=== PATIENT | female | born 1940 | race Two or more races ===

== ENCOUNTER 2021-08-13 17:10 | Inpatient (IN) | payer MEDICARE, MEDICAID ==
[~2021-08-13] VITALS: Ht 160 cm; Wt 63.2 kg
[~2021-08-13 17:10] MED LIST: ALEN70TA74 PO; AMLO-489 PO; BENA10TA15 PO; CALCTAB25 PO; GLIP5TAB12 PO; HYDR-4833 PO; METF-370 PO
[2021-08-13] MEDS ORDERED: MORPHINE SULFATE 4 MG/ML SYR/VIAL IV ONE (17:45)
[2021-08-13] MEDS ORDERED: ONDANSETRON HCL 4 MG/2 ML VIAL IV ONE (17:45)
[2021-08-13 18:27] LABS: Hematocrit 32.5 % (36.0-46.0); Hemoglobin 11.5 g/dL (12.2-16.2); Mean Corpuscular Hemoglobin 33.9 pg (28.0-32.0); Mean Corpuscular Hgb Conc. 35.3 g/dL (32.0-36.0); Mean Corpuscular Volume 96.1 fL (80.0-100.0); Red Blood Cells 3.38 10^6/uL (4.0-5.20)
[2021-08-13 18:31] LABS: Basophils % (manual) 0 (0.0-2.0); Blast Cells 0; Eosinophils % (manual) 0 (0-7); Promyelocytes % 0
[2021-08-13 18:34] LABS: Albumin 2.9 g/dL (3.4-5.0); BUN/Creatinine Ratio 10.9; Calcium 8.9 mg/dL (8.5-10.1); Potassium 4.3 mmol/L (3.5-5.1)
[2021-08-13 18:37] LABS: Bilirubin, Total 0.2 mg/dL (0.2-1.0); Total Protein 6.3 g/dL (6.4-8.2)
[2021-08-13 19:35] LABS: Band Neutrophils % (manual) 2; Lymphocytes % (manual) 27 (10.0-50.0); Metamyelocytes % 1; Monocytes % (manual) 8 (0-12); Myelocytes % 2; Reactive Lymphocytes 1
[2021-08-13] MEDS ORDERED: SODIUM CHLORIDE 0.9% 500 ML IV ONE (20:45)
[2021-08-13] MEDS: ASCORBIC ACID 500 MG TAB PO SCH (22:00)
[2021-08-13] MEDS ORDERED: MORPHINE SULFATE INJECTION 2 MG/ML SYRG IV PRN (22:00)
[2021-08-13] MEDS ORDERED: DEXTROSE (50%) 50ML SYRG IV PRN (22:00)
[2021-08-13] MEDS ORDERED: ONDANSETRON HCL 4 MG/2 ML VIAL IV PRN (22:00)
[2021-08-13] MEDS ORDERED: ACETAMINOPHEN 325 MG TAB PO PRN (22:00)
[2021-08-13] MEDS ORDERED: DOCUSATE SOD 100 MG CAP PO PRN (22:00)
[2021-08-13] MEDS ORDERED: NITROGLYCERIN 0.4 MG SL TAB SL PRN (22:00)
[2021-08-13 23:15] LABS: Urine Bacteria MANY /hpf (None Seen); Urine Blood Negative /uL (Negative); Urine Specific Gravity 1.004 (1.001-1.035); Urine WBC 7 /hpf (0 - 5)
[2021-08-14] MEDS: ACCU-CHEK COMFORT CURVE STRIP VI SCH ×7 (00:09→23:32)
[2021-08-14] MEDS: InsuLIN REG 1unit/0.01ml Soln (100units/ml) SC SCH ×7 (00:14→23:36)
[2021-08-14 02:12] VITALS: BP 141/61
[2021-08-14 04:59] VITALS: BP 117/58
[2021-08-14 06:21] LABS: Basophils # (auto) 0.1 10 ^3/uL (0-0.2); Basophils % (auto) 0.7 % (0.0-2.0); Eosinophils # (auto) 0.1 10 ^3/uL (0-0.8); Eosinophils % (auto) 1.1 % (0.0-7.0); Hematocrit 33.7 % (36.0-46.0); Hemoglobin 11.7 g/dL (12.2-16.2); Lymphocytes # (auto) 2.4 10 ^3/uL (0.4-5.4); Lymphocytes % (auto) 29.3 % (10.0-50.0); Mean Corpuscular Hgb Conc. 34.6 g/dL (32.0-36.0); Mean Corpuscular Volume 95.3 fL (80.0-100.0); Monocytes # (auto) 0.7 10 ^3/uL (0-1.3); Monocytes % (auto) 9.2 % (0.0-12.0); Neutrophils # (auto) 4.8 10 ^3/uL (1.6-8.6); Neutrophils % (auto) 59.7 % (37.0-80.0); Nucleated Red Blood Cells % 0.1 %; Red Blood Cells 3.54 10^6/uL (4.0-5.20); White Blood Cell 8.1 10^3/uL (4.4-10.8)
[2021-08-14 06:30] LABS: Calcium 8.8 mg/dL (8.5-10.1); Potassium 3.7 mmol/L (3.5-5.1)
[2021-08-14] MEDS: METOCLOPRAMIDE HCL 10 MG TAB PO SCH ×3 (06:32→17:03)
[2021-08-14 06:33] LABS: BUN/Creatinine Ratio 10.2; Bilirubin, Total 0.2 mg/dL (0.2-1.0); Total Protein 6.9 g/dL (6.4-8.2)
[2021-08-14 09:00] VITALS: BP 131/65
[2021-08-14] MEDS: ASCORBIC ACID 500 MG TAB PO SCH ×2 (09:40→21:23)
[2021-08-14] MEDS: ZINC SULFATE 220mg CAP or TAB PO SCH (09:40)
[2021-08-14] MEDS: MULTIPLE VITAMIN TAB PO SCH (09:40)
[2021-08-14] MEDS: MORPHINE SULFATE 4 MG/ML SYR/VIAL IV PRN (09:45)
[2021-08-14] MEDS: HYDROcodone-ACET 5/325MG TAB PO PRN (12:42)
[2021-08-14 13:00] VITALS: BP 156/71
[2021-08-14] MEDS ORDERED: LACTULOSE 20Gm/30ML SOLN PO PRN (16:15)
[2021-08-14 17:00] VITALS: BP 146/59
[2021-08-14 22:00] VITALS: BP 141/63
[2021-08-14] MEDS: MUPIROCIN 2% OINT 15gm or 22gm EACHNOSTRI SCH (22:00)
[2021-08-15] MEDS: InsuLIN REG 1unit/0.01ml Soln (100units/ml) SC SCH ×6 (03:33→23:13)
[2021-08-15] MEDS: ACCU-CHEK COMFORT CURVE STRIP VI SCH ×6 (03:34→23:12)
[2021-08-15 05:00] VITALS: BP 122/37
[2021-08-15] MEDS: METOCLOPRAMIDE HCL 10 MG TAB PO SCH ×3 (06:30→17:46)
[2021-08-15] MEDS: MORPHINE SULFATE 4 MG/ML SYR/VIAL IV PRN (07:58)
[2021-08-15] MEDS: MULTIPLE VITAMIN TAB PO SCH (08:35)
[2021-08-15] MEDS: ZINC SULFATE 220mg CAP or TAB PO SCH (08:35)
[2021-08-15] MEDS: ASCORBIC ACID 500 MG TAB PO SCH ×2 (08:36→21:18)
[2021-08-15 08:58] VITALS: BP 161/70
[2021-08-15] MEDS: HYDROcodone-ACET 5/325MG TAB PO PRN ×2 (09:05→18:16)
[2021-08-15] MEDS: MUPIROCIN 2% OINT 15gm or 22gm EACHNOSTRI SCH ×2 (11:50→21:18)
[2021-08-15 13:00] VITALS: BP 139/59
[2021-08-15] MEDS ORDERED: PIPERACILLIN-TAZOB 3.375GM 100 ML IV SCH (16:30)
[2021-08-15] MEDS: PIPERACILLIN-TAZOB 2.25GM 50 ML IV SCH ×2 (17:00→21:18)
[2021-08-15 17:25] VITALS: BP 109/61
[2021-08-15 22:00] VITALS: BP 135/54
[2021-08-16] MEDS: InsuLIN REG 1unit/0.01ml Soln (100units/ml) SC SCH ×5 (04:00→21:02)
[2021-08-16] MEDS: ACCU-CHEK COMFORT CURVE STRIP VI SCH ×5 (04:06→20:00)
[2021-08-16] MEDS: PIPERACILLIN-TAZOB 2.25GM 50 ML IV SCH ×4 (04:06→22:42)
[2021-08-16 05:00] VITALS: BP 149/50
[2021-08-16] MEDS: METOCLOPRAMIDE HCL 10 MG TAB PO SCH ×3 (06:23→16:08)
[2021-08-16 08:44] VITALS: BP 132/69
[2021-08-16] MEDS: MULTIPLE VITAMIN TAB PO SCH (10:19)
[2021-08-16] MEDS: ZINC SULFATE 220mg CAP or TAB PO SCH (10:20)
[2021-08-16] MEDS: ASCORBIC ACID 500 MG TAB PO SCH ×2 (10:20→21:10)
[2021-08-16] MEDS: MUPIROCIN 2% OINT 15gm or 22gm EACHNOSTRI SCH ×2 (10:20→21:11)
[2021-08-16] MEDS: MORPHINE SULFATE 4 MG/ML SYR/VIAL IV PRN (10:21)
[2021-08-16 13:24] VITALS: BP 154/64
[2021-08-16] MEDS ORDERED: LEVE250T18 PO (15:55)
[2021-08-16] MEDS ORDERED: PRIM50TA27 PO (15:55)
[2021-08-16 17:14] VITALS: BP 150/63
[2021-08-16] MEDS: PRIMIDONE 50 MG TAB PO SCH (21:10)
[2021-08-16] MEDS: levETIRAcetam 500 MG TAB PO SCH (21:18)
[2021-08-16 22:00] VITALS: BP 150/39
[2021-08-16 22:55] VITALS: BP 141/61
[2021-08-17] MEDS: ACCU-CHEK COMFORT CURVE STRIP VI SCH ×6 (00:32→21:24)
[2021-08-17] MEDS: InsuLIN REG 1unit/0.01ml Soln (100units/ml) SC SCH ×6 (00:32→21:31)
[2021-08-17] MEDS: PIPERACILLIN-TAZOB 2.25GM 50 ML IV SCH ×4 (04:54→22:58)
[2021-08-17 05:00] VITALS: BP 137/50
[2021-08-17 05:26] LABS: Basophils # (auto) 0 10 ^3/uL (0-0.2); Basophils % (auto) 0.6 % (0.0-2.0); Eosinophils # (auto) 0.1 10 ^3/uL (0-0.8); Eosinophils % (auto) 1.3 % (0.0-7.0); Hematocrit 36.8 % (36.0-46.0); Lymphocytes # (auto) 2.1 10 ^3/uL (0.4-5.4); Lymphocytes % (auto) 25.2 % (10.0-50.0); Mean Corpuscular Hemoglobin 33.8 pg (28.0-32.0); Mean Corpuscular Hgb Conc. 35.4 g/dL (32.0-36.0); Mean Corpuscular Volume 95.4 fL (80.0-100.0); Monocytes # (auto) 0.7 10 ^3/uL (0-1.3); Monocytes % (auto) 8.6 % (0.0-12.0); Neutrophils # (auto) 5.3 10 ^3/uL (1.6-8.6); Neutrophils % (auto) 64.3 % (37.0-80.0); Nucleated Red Blood Cells % 0.1 %; Red Blood Cells 3.85 10^6/uL (4.0-5.20); Red Cell Distribution Width 13.2 % (11.8-14.3); White Blood Cell 8.2 10^3/uL (4.4-10.8)
[2021-08-17 05:51] LABS: Potassium 3.5 mmol/L (3.5-5.1)
[2021-08-17 06:03] LABS: BUN/Creatinine Ratio 13.5; Bilirubin, Total 0.5 mg/dL (0.2-1.0); Calcium 9.1 mg/dL (8.5-10.1); Total Protein 7.4 g/dL (6.4-8.2)
[2021-08-17] MEDS: METOCLOPRAMIDE HCL 10 MG TAB PO SCH ×3 (06:26→17:04)
[2021-08-17 08:00] VITALS: BP 133/69
[2021-08-17] MEDS: MULTIPLE VITAMIN TAB PO SCH (08:43)
[2021-08-17] MEDS: ASCORBIC ACID 500 MG TAB PO SCH ×2 (08:43→21:24)
[2021-08-17] MEDS: BENAZEPRIL HCL 10 MG TAB PO SCH (08:44)
[2021-08-17] MEDS: glipiZIDE 5 MG TAB PO SCH (08:46)
[2021-08-17] MEDS: ZINC SULFATE 220mg CAP or TAB PO SCH (08:46)
[2021-08-17] MEDS: levETIRAcetam 500 MG TAB PO SCH ×2 (08:46→21:25)
[2021-08-17] MEDS: amLODIPine BESYLATE 5 MG TAB PO SCH (08:47)
[2021-08-17] MEDS: MUPIROCIN 2% OINT 15gm or 22gm EACHNOSTRI SCH ×2 (09:15→21:36)
[2021-08-17 12:00] VITALS: BP 121/57
[2021-08-17] MEDS ORDERED: PRIM50TA5 PO (13:24)
[2021-08-17] MEDS ORDERED: KEP500T PO (13:24)
[2021-08-17 16:00] VITALS: BP 114/54
[2021-08-17] MEDS: PRIMIDONE 50 MG TAB PO SCH (21:24)
[2021-08-17 22:00] VITALS: BP 101/48
[2021-08-18] MEDS: InsuLIN REG 1unit/0.01ml Soln (100units/ml) SC SCH ×6 (01:03→20:12)
[2021-08-18] MEDS: ACCU-CHEK COMFORT CURVE STRIP VI SCH ×6 (01:04→20:13)
[2021-08-18] MEDS: PIPERACILLIN-TAZOB 2.25GM 50 ML IV SCH ×3 (04:53→17:08)
[2021-08-18 05:00] VITALS: BP 127/59
[2021-08-18] MEDS: METOCLOPRAMIDE HCL 10 MG TAB PO SCH ×3 (06:51→17:08)
[2021-08-18 08:49] VITALS: BP 104/44
[2021-08-18] MEDS: amLODIPine BESYLATE 5 MG TAB PO SCH (10:00)
[2021-08-18] MEDS: BENAZEPRIL HCL 10 MG TAB PO SCH (10:00)
[2021-08-18] MEDS: MUPIROCIN 2% OINT 15gm or 22gm EACHNOSTRI SCH ×2 (10:49→22:14)
[2021-08-18] MEDS: MULTIPLE VITAMIN TAB PO SCH (10:56)
[2021-08-18] MEDS: levETIRAcetam 500 MG TAB PO SCH ×2 (10:56→22:14)
[2021-08-18] MEDS: ASCORBIC ACID 500 MG TAB PO SCH ×2 (10:56→22:13)
[2021-08-18] MEDS: ZINC SULFATE 220mg CAP or TAB PO SCH (10:57)
[2021-08-18] MEDS: glipiZIDE 5 MG TAB PO SCH (11:01)
[2021-08-18 12:30] VITALS: BP 104/87
[2021-08-18 17:00] VITALS: BP 134/64
[2021-08-18 17:55] VITALS: BP 134/64
[2021-08-18 21:48] VITALS: BP 108/50
[2021-08-18] MEDS: PRIMIDONE 50 MG TAB PO SCH (22:14)
== END 2021-08-18 23:39 | DRG 690 ==
LOC: EDBD 17:10 → ER 17:10 → TELE 21:48 → TELE-EAST 08-14 01:45
PROVIDERS: ADMIT Internal Medicine; ATTEND Internal Medicine
DX: N39.0 Urinary tract infection, site not specified (principal); K59.00 Constipation, unspecified; R91.1 Solitary pulmonary nodule; E66.9 Obesity, unspecified; G25.0 Essential tremor; G40.909 Epilepsy, unspecified, not intractable, without status epilepticus; Z20.822 Contact with and (suspected) exposure to COVID-19; F41.9 Anxiety disorder, unspecified; Z68.24 Body mass index [BMI] 24.0-24.9, adult; I11.0 Hypertensive heart disease with heart failure; I50.9 Heart failure, unspecified; E11.9 Type 2 diabetes mellitus without complications; Z96.641 Presence of right artificial hip joint; E03.9 Hypothyroidism, unspecified; I25.10 Atherosclerotic heart disease of native coronary artery without angina pectoris; Z79.899 Other long term (current) drug therapy; Z89.511 Acquired absence of right leg below knee; Z89.611 Acquired absence of right leg above knee; Z90.710 Acquired absence of both cervix and uterus; Z79.84 Long term (current) use of oral hypoglycemic drugs
CPT/HCPCS: 36415; 36600; 71045; 72070; 72100; 73620; 74176; 80053; 81001; 82010; 82805; 82962; 83690; 83735; 83880; 84484; 85007; 85025; 85027; 87081; 93005; 93306; 96360; 97110; 97163; 97530; G0378; J1815; J2543

== ENCOUNTER 2022-04-04 14:35 | Inpatient (IN) | payer MEDICARE, MEDICAID ==
[~2022-04-04] VITALS: Ht 162.6 cm; Wt 57.0 kg
[~2022-04-04 14:35] MED LIST changes: +KEP500T PO; +PRIM50TA27 PO; +PRIM50TA5 PO
[2022-04-04] MEDS ORDERED: SODIUM CHLORIDE 0.9% 1,000 ML IV ONE ×2 (17:00)
[2022-04-04 19:15] LABS: Albumin 3.7 g/dL (3.4-5.0); BUN/Creatinine Ratio 12.4; Bilirubin, Total 0.5 mg/dL (0.2-1.0); Magnesium 2.5 mg/dL (1.6-2.6); Total Protein 7.8 g/dL (6.4-8.2)
[2022-04-04 19:18] LABS: Basophils # (auto) 0 10 ^3/uL (0-0.2); Basophils % (auto) 0.6 % (0.0-2.0); Eosinophils # (auto) 0.1 10 ^3/uL (0-0.8); Hematocrit 39.4 % (36.0-46.0); Hemoglobin 13.2 g/dL (12.2-16.2); Lymphocytes # (auto) 1.9 10 ^3/uL (0.4-5.4); Lymphocytes % (auto) 25.4 % (10.0-50.0); Mean Corpuscular Hemoglobin 29.8 pg (28.0-32.0); Mean Corpuscular Hgb Conc. 33.5 g/dL (32.0-36.0); Mean Corpuscular Volume 88.8 fL (80.0-100.0); Monocytes # (auto) 0.6 10 ^3/uL (0-1.3); Monocytes % (auto) 7.6 % (0.0-12.0); Neutrophils # (auto) 4.9 10 ^3/uL (1.6-8.6); Neutrophils % (auto) 65.4 % (37.0-80.0); Nucleated Red Blood Cells % 0.1 %; Red Blood Cells 4.44 10^6/uL (4.0-5.20); Red Cell Distribution Width 13.5 % (11.8-14.3); White Blood Cell 7.5 10^3/uL (4.4-10.8)
[2022-04-04] MEDS ORDERED: LORazepam 2MG/ML-1ML VIAL IV PRN (20:15)
[2022-04-04] MEDS: levETIRAcetam 500 MG TAB PO SCH (22:45)
[2022-04-04] MEDS: PRIMIDONE 50 MG TAB PO SCH (22:45)
[2022-04-04 23:25] LABS: Urine Specific Gravity 1.006 (1.001-1.035)
[2022-04-04 23:26] LABS: Urine Blood Normal /uL (Negative)
[2022-04-05] MEDS ORDERED: ACETAMINOPHEN 325 MG TAB PO PRN (07:15)
[2022-04-05] MEDS ORDERED: hydrALAZINE HCL 20 MG/ML VL IV PRN (07:15)
[2022-04-05] MEDS ORDERED: DOCUSATE SOD 100 MG CAP PO PRN (07:15)
[2022-04-05] MEDS ORDERED: NITROGLYCERIN 0.4 MG SL TAB SL PRN (07:15)
[2022-04-05] MEDS ORDERED: HYDROcodone-ACET 5/325MG TAB PO PRN (07:15)
[2022-04-05] MEDS ORDERED: ONDANSETRON HCL 4 MG/2 ML VIAL IV PRN (07:15)
[2022-04-05] MEDS ORDERED: MORPHINE SULFATE INJ 2 MG/ml SYRG IV PRN (07:15)
[2022-04-05] MEDS ORDERED: DEXTROSE (50%) 50ML SYRG IV PRN (07:15)
[2022-04-05] MEDS: levETIRAcetam 500 MG TAB PO SCH ×2 (11:10→22:52)
[2022-04-05] MEDS: PANTOPRAZOLE 40 MG/10 ML VIAL INJ IV SCH (11:10)
[2022-04-05] MEDS: PRIMIDONE 50 MG TAB PO SCH ×2 (11:10→22:50)
[2022-04-05] MEDS: cefTRIAXone 1GM/50ML D5W 50 ML IV SCH (11:13)
[2022-04-05] MEDS: ACCU-CHEK COMFORT CURVE STRIP VI SCH ×3 (14:01→22:50)
[2022-04-05] MEDS: InsuLIN REG 1unit/0.01ml Soln (100units/ml) SC SCH ×3 (14:07→22:51)
[2022-04-05 22:00] VITALS: BP 126/47
[2022-04-06 05:00] VITALS: BP 148/58
[2022-04-06 06:23] LABS: Basophils # (auto) 0 10 ^3/uL (0-0.2); Basophils % (auto) 0.7 % (0.0-2.0); Eosinophils # (auto) 0.1 10 ^3/uL (0-0.8); Eosinophils % (auto) 1.4 % (0.0-7.0); Hematocrit 38.6 % (36.0-46.0); Lymphocytes # (auto) 1.4 10 ^3/uL (0.4-5.4); Mean Corpuscular Hgb Conc. 33.7 g/dL (32.0-36.0); Mean Corpuscular Volume 89.1 fL (80.0-100.0); Monocytes # (auto) 0.5 10 ^3/uL (0-1.3); Monocytes % (auto) 9.1 % (0.0-12.0); Neutrophils # (auto) 3.7 10 ^3/uL (1.6-8.6); Neutrophils % (auto) 63.8 % (37.0-80.0); Nucleated Red Blood Cells % 0.1 %; Red Blood Cells 4.34 10^6/uL (4.0-5.20); Red Cell Distribution Width 13.2 % (11.8-14.3); White Blood Cell 5.8 10^3/uL (4.4-10.8)
[2022-04-06] MEDS: ACCU-CHEK COMFORT CURVE STRIP VI SCH ×4 (06:30→22:22)
[2022-04-06] MEDS: InsuLIN REG 1unit/0.01ml Soln (100units/ml) SC SCH ×4 (06:33→22:43)
[2022-04-06 06:43] LABS: Albumin 3.5 g/dL (3.4-5.0); Calcium 9.7 mg/dL (8.5-10.1); Potassium 4.5 mmol/L (3.5-5.1)
[2022-04-06 06:47] LABS: BUN/Creatinine Ratio 6.9; Bilirubin, Total 0.5 mg/dL (0.2-1.0); Total Protein 8.1 g/dL (6.4-8.2)
[2022-04-06 08:00] VITALS: BP 124/54
[2022-04-06 09:00] VITALS: BP 124/54
[2022-04-06] MEDS: cefTRIAXone 1GM/50ML D5W 50 ML IV SCH (09:15)
[2022-04-06] MEDS: PANTOPRAZOLE 40 MG/10 ML VIAL INJ IV SCH (09:15)
[2022-04-06] MEDS: levETIRAcetam 500 MG TAB PO SCH ×2 (09:15→22:44)
[2022-04-06] MEDS: PRIMIDONE 50 MG TAB PO SCH ×2 (09:16→22:44)
[2022-04-06 13:00] VITALS: BP 136/55
[2022-04-06 17:00] VITALS: BP 169/59
[2022-04-06 22:00] VITALS: BP 165/62
[2022-04-07 05:00] VITALS: BP 144/53
[2022-04-07] MEDS: ACCU-CHEK COMFORT CURVE STRIP VI SCH ×4 (06:01→21:43)
[2022-04-07] MEDS: InsuLIN REG 1unit/0.01ml Soln (100units/ml) SC SCH ×4 (06:08→21:42)
[2022-04-07 08:00] VITALS: BP 145/63
[2022-04-07] MEDS: levETIRAcetam 500 MG TAB PO SCH ×2 (09:46→21:31)
[2022-04-07] MEDS: cefTRIAXone 1GM/50ML D5W 50 ML IV SCH (09:46)
[2022-04-07] MEDS: PRIMIDONE 50 MG TAB PO SCH ×2 (09:46→21:31)
[2022-04-07] MEDS: PANTOPRAZOLE 40 MG/10 ML VIAL INJ IV SCH (10:55)
[2022-04-07 12:00] VITALS: BP 142/56
[2022-04-07] MEDS ORDERED: PRIM50TA5 PO (12:52)
[2022-04-07] MEDS ORDERED: KEP500T PO (12:52)
[2022-04-07] MEDS ORDERED: CEPH-322 PO (12:52)
[2022-04-07] MEDS ORDERED: LACTULOSE 20Gm/30ML SOLN PO ONE (13:15)
[2022-04-07 16:00] VITALS: BP 152/56
[2022-04-07] MEDS: LACTULOSE 20Gm/30ML SOLN PO PRN (21:31)
[2022-04-07 22:00] VITALS: BP 147/49
[2022-04-08 05:00] VITALS: BP 130/62
[2022-04-08] MEDS: InsuLIN REG 1unit/0.01ml Soln (100units/ml) SC SCH ×4 (06:01→21:48)
[2022-04-08] MEDS: ACCU-CHEK COMFORT CURVE STRIP VI SCH ×4 (06:33→22:16)
[2022-04-08 08:42] VITALS: BP 127/64
[2022-04-08] MEDS: PANTOPRAZOLE 40 MG/10 ML VIAL INJ IV SCH (09:38)
[2022-04-08] MEDS: levETIRAcetam 500 MG TAB PO SCH ×2 (09:38→21:54)
[2022-04-08] MEDS: cefTRIAXone 1GM/50ML D5W 50 ML IV SCH (09:38)
[2022-04-08] MEDS: PRIMIDONE 50 MG TAB PO SCH ×2 (09:38→21:54)
[2022-04-08 13:00] VITALS: BP 137/63
[2022-04-08 16:52] VITALS: BP 169/70
[2022-04-08 17:30] VITALS: BP 158/82
[2022-04-09 00:59] VITALS: BP 147/57
[2022-04-09 05:34] VITALS: BP 118/52
[2022-04-09] MEDS: ACCU-CHEK COMFORT CURVE STRIP VI SCH ×2 (06:12→12:06)
[2022-04-09] MEDS: InsuLIN REG 1unit/0.01ml Soln (100units/ml) SC SCH ×2 (06:14→12:08)
[2022-04-09] MEDS: levETIRAcetam 500 MG TAB PO SCH (09:40)
[2022-04-09] MEDS: PANTOPRAZOLE 40 MG/10 ML VIAL INJ IV SCH (09:40)
[2022-04-09] MEDS: PRIMIDONE 50 MG TAB PO SCH (09:40)
[2022-04-09] MEDS: cefTRIAXone 1GM/50ML D5W 50 ML IV SCH (09:40)
[2022-04-09 10:05] VITALS: BP 123/55
[2022-04-09] MEDS: LACTULOSE 20Gm/30ML SOLN PO PRN (14:21)
[2022-04-09 14:39] VITALS: BP 123/55
== END 2022-04-09 16:15 | DRG 101 ==
LOC: EDUNIT# 14:35 → EDBD 14:35 → ER 14:35 → TELE 04-05 07:13 → TELE-WESTW 04-05 21:53
PROVIDERS: ADMIT Nurse Practitioner; ATTEND Nurse Practitioner
DX: G40.909 Epilepsy, unspecified, not intractable, without status epilepticus (principal); E87.1 Hypo-osmolality and hyponatremia; N30.00 Acute cystitis without hematuria; Z20.822 Contact with and (suspected) exposure to COVID-19; E11.65 Type 2 diabetes mellitus with hyperglycemia; E03.9 Hypothyroidism, unspecified; F17.200 Nicotine dependence, unspecified, uncomplicated; F41.1 Generalized anxiety disorder; I11.0 Hypertensive heart disease with heart failure; I25.10 Atherosclerotic heart disease of native coronary artery without angina pectoris; I50.9 Heart failure, unspecified; Z89.611 Acquired absence of right leg above knee; Z79.899 Other long term (current) drug therapy
CPT/HCPCS: 36415; 70450; 71045; 74018; 80053; 81003; 82962; 83735; 85025; 87086; 87426; 93005; 95819; 96360; C9113; G0378; J0696; J1815